=== PATIENT | female | born 1975 | race Caucasian/White ===

== ENCOUNTER 2020-04-15 16:41 | Emergency (ER) | payer SELFPAY ==
[~2020-04-15] VITALS: Ht 165.1 cm; Wt 70.3 kg
[2020-04-15 16:41] VITALS: BP_SYST 127
[2020-04-15] MEDS ORDERED: NACL 0.9% 1,000 ML IV ONE (17:00)
[2020-04-15] MEDS ORDERED: ONDANSETRON HCL 4 MG/2 ML VIAL IVP ONE (17:00)
[2020-04-15 17:28] LABS: BASOPHILS % (AUTO) 0.6 % (0.0-2.0); EOSINOPHILS % (AUTO) 0.6 % (0.0-4.0); HEMATOCRIT 40.6 % (36-48); LYMPHOCYTES # (AUTO) 1.9 K/uL (1.0-5.5); MEAN CORPUSCULAR HEMOGLOBIN 32 pg (27-31); MEAN CORPUSCULAR HGB CONC 34 % (32-36); MEAN CORPUSCULAR VOLUME 92 fL (79.0-98.0); MONOCYTES # (AUTO) 0.4 K/uL (0.0-1.0); MONOCYTES % (AUTO) 6.8 % (1.7-9.3); NEUTROPHILS # (AUTO) 3.9 K/uL (1.8-7.7); PLATELET COUNT (AUTO) 258 K/uL (130-430); RED BLOOD CELL COUNT(AUTO) 4.43 MIL/uL (4.2-6.2); WHITE BLOOD COUNT (AUTO) 6.3 K/uL (4.8-10.8)
[2020-04-15 18:27] LABS: ALANINE AMINOTRANSFERASE 59 U/L (12-78); ALBUMIN 4.2 g/dL (3.4-4.8); ANION GAP 12 (5-15); ASPARTATE AMINOTRANSFERASE 72 U/L (10-37); BILIRUBIN,DIRECT 0.1 mg/dL (0.0-0.3); CALCIUM 8.9 mg/dL (8.4-11.0); CHLORIDE 100 mmol/L (98-107); GLUCOSE 103 mg/dL (70-99); LIPASE 171 U/L (73-393); POTASSIUM 3.6 mmol/L (3.5-5.1); SODIUM SERUM 137 mmol/L (136-145); TOTAL BILIRUBIN 0.5 mg/dL (0.0-1.0); UREA NITROGEN, BLOOD 12 mg/dL (8-21)
[2020-04-15 18:29] LABS: GFR AFRICAN AMERICAN 101 mL/min (>90)
[2020-04-15 18:30] LABS: HCG,QUANTITATIVE 4 mIU/ML (0-6)
[2020-04-15 18:58] VITALS: BP_SYST 127
== END 2020-04-15 18:58 | disposition home or self-care (01) ==
LOC: SED 16:41
DX: R10.84 Generalized abdominal pain (principal); Z88.1 Allergy status to other antibiotic agents
CPT/HCPCS: 36415; 80048; 80076; 83690; 84484; 84702; 85025; 96361; 96374; 99283; J2405; J7030

== ENCOUNTER 2020-12-27 11:44 | Emergency (ER) | payer OTHER ==
[~2020-12-27] VITALS: Ht 167.6 cm; Wt 68.0 kg
[2020-12-27 11:47] VITALS: BP_SYST 104
--- NOTE | 2020-12-27 11:50 | NUR ---
Patient to ER bed 4 to gown for evaluation. Side rails up. Report given to Gabriela YUSUF.
--- NOTE | 2020-12-27 11:55 | NUR ---
PT [facility] with complaint of a near syncopal episode. pt reports her gave her a epi pen injection per her request. pt reports this has been an ongoing issue and was presrcibed the epi pen from her doctor because they believed it to be an allergic reaction. Pt reports this has been the fifth time. pt complains of non radiating chest pain 04/20. pt resting in [facility].
--- NOTE | 2020-12-27 11:56 | NUR ---
ER at bedside examining patient.
[2020-12-27] MEDS ORDERED: ASPIRIN 81 MG TAB.CHEW PO ONE (12:15)
[2020-12-27 12:33] LABS: BASOPHILS % (AUTO) 0.5 % (0.0-2.0); EOSINOPHILS # (AUTO) 0.1 K/uL (0.0-0.4); EOSINOPHILS % (AUTO) 1.2 % (0.0-4.0); HEMATOCRIT 39.1 % (36-48); LYMPHOCYTES % (AUTO) 25.4 % (20.5-51.5); MEAN CORPUSCULAR HEMOGLOBIN 32 pg (27-31); MEAN CORPUSCULAR HGB CONC 33 % (32-36); MEAN CORPUSCULAR VOLUME 95 fL (79.0-98.0); MONOCYTES # (AUTO) 0.5 K/uL (0.0-1.0); MONOCYTES % (AUTO) 6.3 % (1.7-9.3); NEUTROPHILS # (AUTO) 5.3 K/uL (1.8-7.7); NEUTROPHILS % (AUTO) 66.6 % (40.0-70.0); PLATELET COUNT (AUTO) 222 K/uL (130-430); RED BLOOD CELL COUNT(AUTO) 4.12 MIL/uL (4.2-6.2); RED CELL DISTRIBUTION WIDTH 13.3 % (9.0-15.0); WHITE BLOOD COUNT (AUTO) 7.9 K/uL (4.8-10.8)
[2020-12-27 12:44] LABS: CALCIUM 8.8 mg/dL (8.4-11.0); CREATININE 0.83 mg/dL (0.55-1.30)
[2020-12-27 12:57] LABS: ALBUMIN 3.9 g/dL (3.4-4.8); TOTAL BILIRUBIN 0.4 mg/dL (0.0-1.0)
--- NOTE | 2020-12-27 12:59 | NUR ---
assisted pt to restroom for urine sample. pt tolerated well gait is steady and straight. VSS resting in gurney.
--- NOTE | 2020-12-27 13:09 | NUR ---
COVID-19 SWAB PERFORMED AT BEDSIDE
[2020-12-27] MEDS ORDERED: ROPI3TAB PO (13:41)
[2020-12-27] MEDS ORDERED: IMI50 PO (13:41)
[2020-12-27] MEDS ORDERED: ESCI10TA PO (13:41)
--- NOTE | 2020-12-27 13:41 | NUR ---
Medication reconciliation completed with information provided by PT. Any prior medication reconciliation on file was reviewed and corrected.
[2020-12-27] MEDS ORDERED: IOHEXOL 350 mgI/mL, 150 ML INFUS..BTL IV ONE (13:52)
--- NOTE | 2020-12-27 14:00 | NUR ---
Patient transported to radiology via wheelchair, accompanied by staff
[2020-12-27] MEDS ORDERED: IBUP-1969 PO (14:37)
[2020-12-27] MEDS ORDERED: HYDR-3917 PO (14:37)
[2020-12-27 16:36] VITALS: BP_SYST 103
--- NOTE | 2020-12-27 16:36 | NUR ---
Patient given written and verbal discharge instructions and verbalizes understanding. ER MD discussed with patient the results and treatment provided. Patient in stable condition. ID arm band removed. IV catheter removed intact and dressing applied, no active bleeding. Rx of MOTRIN AND NORCO given. Patient educated on pain management and to follow up with PMD. Pain Scale 0/10 Opportunity for questions provided and answered. Medication side effect fact sheet provided.
== END 2020-12-27 16:36 | disposition home or self-care (01) ==
LOC: SED 11:44
DX: R55 Syncope and collapse (principal); R07.89 Other chest pain; Z88.1 Allergy status to other antibiotic agents; Z88.8 Allergy status to other drugs, medicaments and biological substances; Z79.899 Other long term (current) drug therapy; Z20.822 Contact with and (suspected) exposure to COVID-19
CPT/HCPCS: 36415; 71045; 71275; 76376; 80053; 81025; 83880; 84484; 84703; 85025; 85379; 87426; 93005; 99285; Q9967